=== PATIENT | male | born 1980 | race African-American/Black ===

== ENCOUNTER 2017-11-19 03:02 | Emergency (ER) | payer SELFPAY ==
--- NOTE | 2017-11-19 03:48 | ER Document Report ---
ED General <ARCHANAATUL - Last Filed: 11/19/17 05:22> - General TRAVEL OUTSIDE OF THE [place] IN LAST 30 DAYS: No <MARIA ALEJANDRA GONZALEZ - Last Filed: 11/19/17 06:07> - General Chief Complaint: Headache, L arm pain Stated Complaint: HEADACHE,LEFT ARM PAIN Time Seen by Provider: 11/19/17 03:17 - HPI Notes: Patient is a 37-year-old male with no significant past medical history who presents to the ED complaining of a headache, decreased appetite, left shoulder and arm pain, bilateral knee pain, and bilateral feet pain. Patient states that he feels that he has body aches and does feel subjectively warm. Patient states that his symptoms have been ongoing for 2 days now which began with him feeling "lousy." Patient states that one-point the headache was a 10 out of 10 , but is currently a 5 out of 10. Patient states that his headache starts in the back of his head and works its way around and on top. Patient states that he does have muscle soreness to the neck and left arm. Pt has had issues with moving the left arm due to the pain. He is otherwise eating and drinking without any difficulties. He is urinating normally and having normal bowel movements. He denies any IV drug use. He denies any drug allergies. Denies any fever, head injury, neck pain, changes in vision/speech/mentation/hearing, URI, sore throat, chest pain, palpitations, syncope, cough, shortness of breath , wheeze, dyspnea, abdominal pain, nausea/vomiting/diarrhea, urinary retention, dysuria, hematuria, loss of control of bowel or bladder, numbness/tingling, saddle anesthesia, muscle paralysis/weakness, or rash. (MARIA ALEJANDRA GONZALEZ) - Related Data Allergies/Adverse Reactions: No Known Allergies Allergy (Verified 06/14/16 19:39) Past Medical History - Social History Smoking Status: Current Every Day Smoker Chew tobacco use (# tins/day): No Frequency of alcohol use: None Drug Abuse: None Family History: Reviewed & Not Pertinent Patient has suicidal ideation: No Patient has homicidal ideation: No Renal/ Medical History: Denies: Hx Peritoneal Dialysis - Immunizations Immunizations up to date: Yes Hx Diphtheria, Pertussis, Tetanus Vaccination: Yes <MARIA ALEJANDRA GONZALEZ - Last Filed: 11/19/17 06:07> Review of Systems <ATUL MAGAÑA - Last Filed: 11/19/17 05:22> <MARIA ALEJANDRA GONZALEZ - Last Filed: 11/19/17 06:07> - Review of Systems Notes: REVIEW OF SYSTEMS: CONSTITUTIONAL : see hpi. Denies fever, chills, or sweats. Denies recent illness. EENT: Denies eye, ear, throat, or mouth pain or symptoms. Denies nasal or sinus congestion or discharge. Denies throat, tongue, or mouth swelling or difficulty swallowing. CARDIOVASCULAR: Denies chest pain. Denies palpitations or racing or irregular heart beat. Denies ankle edema. RESPIRATORY: Denies cough, cold, or chest congestion. Denies shortness of breath, difficulty breathing, or wheezing. GASTROINTESTINAL: Denies abdominal pain or distention. Denies nausea, vomiting , or diarrhea. Denies blood in vomitus, stools, or per rectum. Denies black, tarry stools. Denies constipation. GENITOURINARY: Denies difficulty urinating, painful urination, burning, frequency, blood in urine, or discharge. MUSCULOSKELETAL: see hpi SKIN: Denies rash, lesions or sores. NEUROLOGICAL: see hpi. Denies confusion or altered mental status. Denies passing out or loss of consciousness. Denies dizziness or lightheadedness. Denies weakness or paralysis or loss of use of either side. Denies problems with gait or speech. Denies sensory loss, numbness, or tingling. Denies seizures. PSYCHIATRIC: Denies anxiety or stress. Denies depression, suicidal ideation, or homicidal ideation. ALL OTHER SYSTEMS REVIEWED AND NEGATIVE. Dictation was performed using [employer] voice recognition software (MARIA ALEJANDRA GONZALEZ) Physical Exam <ATUL MAGAÑA - Last Filed: 11/19/17 05:22> <MARIA ALEJANDRA GONZALEZ - Last Filed: 11/19/17 06:07> - Vital signs Vitals: Temp Pulse Resp BP Pulse Ox 99.9 F 88 18 153/89 H 99 11/19/17 03:15 11/19/17 03:15 11/19/17 03:15 11/19/17 03:15 11/19/17 03:15 Notes: PHYSICAL EXAMINATION: GENERAL: Well-appearing, well-nourished and in no acute distress. A&Ox4, answers questions appropriately. Obese. HEAD: Atraumatic, normocephalic. Non-tender. No self sign EYES: Pupils equal round and reactive to light, extraocular movements intact, sclera anicteric, conjunctiva are normal. Visual cintron intact. ENT: EAC clear b/l. TM's intact b/l without erythema, fluid, or perforation. Nares patent and without discharge. oropharynx clear without exudates. No tonsilar hypertrophy or erythema. Moist mucous membranes. No sinus tenderness. No hemotympanum/CSF discharge. NECK: Normal range of motion, supple without lymphadenopathy. No rigidity/ meningismus. No midline tenderness. Spurling negative. NEXUS negative. + mild tenderness to the C-paraspinal mm and the trapezius mm b/l. Chest: No flail chest. equal rise/fall. Non-tender LUNGS: Breath sounds clear to auscultation bilaterally and equal. No wheezes rales or rhonchi. HEART: Regular rate and rhythm without murmurs, rubs, gallops. ABDOMEN: Soft, nontender, nondistended abdomen. No guarding, no rebound. No masses appreciated. Normal bowel sounds present. No CVA tenderness bilaterally. Musculoskeletal: Left shoulder: LROM to active due to discomfort, FROM to passive. Strength 5+/5. N/V intact distal. No warmth or swelling to the shoulder/elbow/wrist/hand. No bony tenderness. + tenderness elicited with palp of the soft tissues. No compartment syndrome. Ext otherwise b/l: FROM to passive/active. Strength 5+/5. No deficits noted. + mild tenderness to the knees b/l and feet/toes. N/v intact distal. No warmth , erythema, or swelling noted. Pt able to ambulate w/o difficulty. Back: FROM to passive/active. Strength 5+/5. No vertebral point tenderness, stepoffs, or deformities. No other bony tenderness or ecchymosis. SLR negative b/l. Extremities: No cyanosis, clubbing, or edema b/l. Peripheral pulses 2+. Capillary refill less than 2 seconds. NEUROLOGICAL: NIH 0, GCS 15, MMSE intact. Cranial nerves grossly intact. Normal speech, normal gait. Normal sensory, motor exams. Reflexes 2+ b/l. EDMUND' s negative. Pronator drift negative. Heel/pena, finger/nose wnl. PSYCH: Normal mood, normal affect. SKIN: Warm, Dry, normal turgor, no rashes or lesions noted. (MARIA ALEJANDRA GONZALEZ) Course - Laboratory Result Diagrams: 11/19/17 04:17 11/19/17 04:17 <ATUL MAGAÑA - Last Filed: 11/19/17 05:22> - Laboratory Result Diagrams: 11/19/17 04:17 11/19/17 04:55 <MARIA ALEJANDRA GONZALEZ - Last Filed: 11/19/17 06:07> - Re-evaluation Re-evalutation: 11/19/17 05:22 Patient was initially seen by the PA. I did also evaluate the patient on my own. Patient is a pleasant 29-year-old male presents with complaint of neck pain with some headache as well as diffuse joint pains. Patient says symptoms first started at least 2 days ago. He said he first noticed some pain mainly into his left trapezius muscle and into his left shoulder that went up into his neck and start causing headache. Said these pains were gradual onset not sudden in onset. They are not maximal in onset. Symptoms have continued and now he is also having pain into the right side of his back and then also into his joints such as elbows and knees. He says he feels sore all over. Patient denies any fevers. No vomiting. No diarrhea. His temp in triage was 99.9. His vital signs are otherwise normal. On exam he has pain to palpation over the left trapezius muscle and left shoulder. He has also some pain to palpation over the right trapezius muscle. He does have mild mild pain to palpation of his knees. There is no swelling or redness or warmth to any of his joints. He does work as a furniture assembler. He denies any recent trauma or injuries that he is aware of during moving furniture. We have ordered blood work to check electrolites and renal function status as well as to make sure he does not have a large leukocytosis. Also ordered EKG being that he had does have some pain going to left arm although I suspect this is mostly musculoskeletal due to the easy reproduction with movement and palpation. I suspect most likely is a viral illness causing the pain and body aches. There is also possibility he could just have pain from working as a furniture assembler. I do not suspect bacterial meningitis and that his symptoms have been on going for 2 days and he has no fever and is awake alert and otherwise looks well. We will wait for patient's workup before determining disposition. Dictation of this chart was performed using voice recognition software; therefore, there may be some unintended grammatical errors. (ATUL MAGAÑA) 11/19/17 06:04 Patient is an afebrile, well-hydrated, 37-year-old male who presents to the ED with musculoskeletal pain versus possible viral illness. Vitals are stable. PE is otherwise unremarkable for any focal neurological deficits. CBC, BMP, CPK , EKG, influenza unremarkable for any acute pathology. Low suspicion for any ACS, PE, pneumothorax, pericarditis, dissection, respiratory compromise, severe dehydration, sepsis, meningitis, or other systemic emergent condition at this time. Patient is aware that her condition can change from initial presentation and she needs to monitor symptoms closely and seek medical attention for any acute changes. Toradol given IM along with tylenol, morphine, and fluids. Recommend conservative measures for symptoms. Recheck with your PCM in 3-5 days. Consider consult with Ortho/P.T. Return to the ED with any worsening/ concerning symptoms otherwise as reviewed in discharge. Patient is in agreement. (MARIA ALEJANDRA GONZALEZ) - Vital Signs Vital signs: Temp Pulse Resp BP Pulse Ox 99.9 F 88 17 144/84 H 100 11/19/17 03:15 11/19/17 03:15 11/19/17 05:01 11/19/17 05:01 11/19/17 05:01 - Laboratory Laboratory results interpreted by me: 11/19/17 11/19/17 04:17 04:55 RBC 6.50 H MCV 71 L MCH 22.8 L RDW 15.8 H Sodium 135.8 L Glucose 130 H Calcium 8.3 L Creatine Kinase 54 L Discharge <ATUL MAGAÑA - Last Filed: 11/19/17 05:22> <MARIA ALEJANDRA GONZALEZ - Last Filed: 11/19/17 06:07> - Discharge Clinical Impression: Musculoskeletal pain of extremity, Viral illness Condition: Stable Disposition: HOME, SELF-CARE Instructions: Headache ([facility]) Additional Instructions: Rest, Ice, Compression, Elevation Use crutches/splint/sling as directed Tylenol/ibuprofen as needed Light stretches daily Strength exercises as able Moist heat and massage may help F/u with your PCP in 3-5 days for a recheck Consider consult(s) with Orthopedics/physical therapy for ongoing/worsening symptoms Return to the ED with any worsening symptoms and/or development of fever, headache, chest pain, palpitations, syncope, shortness of breath, trouble breathing, abdominal pain, n/v/d, muscle weakness/paralysis, numbness/tingling, swelling, redness, or other worsening symptoms that are concerning to you. Prescriptions: Naproxen 500 mg PO BID PRN #30 tablet PRN Reason: Forms: Elevated Blood Pressure, Smoking Cessation Education Referrals: [facility] ([facility] [Provider Group] - Follow up as needed
[2017-11-19] MEDS ORDERED: ACETAMINOPHEN 325 MG TABLET PO ONE (03:57)
[2017-11-19] MEDS ORDERED: MORPHINE SULFATE 10 MG/ML INJ IV ONE (04:00)
[2017-11-19] MEDS: NORMAL SALINE 1000 ML 1,000 ML IV PRN ×2 (04:19→04:46)
[2017-11-19 04:34] LABS: ABSOLUTE LYMPHOCYTES (AUTO) 1.3 10^3/uL (0.5-4.7); ABSOLUTE MONOCYTES (AUTO) 0.3 10^3/uL (0.1-1.4); ABSOLUTE NEUT (AUTO) 2.5 10^3/uL (1.7-8.2); BASOPHILS % (AUTO) 0.8 % (0-2); HEMOGLOBIN 14.8 g/dL (13.5-17.0); LYMPHOCYTES % (AUTO) 31.7 % (13-45); MEAN CORPUSCULAR HEMOGLOBIN 22.8 pg (27.0-33.4); MEAN CORPUSCULAR HGB CONC 32.2 g/dL (32.0-36.0); MEAN CORPUSCULAR VOLUME 71 fl (80-97); MONOCYTES % (AUTO) 6.9 % (3-13); PLATELET COUNT 206 10^3/uL (150-450); RED CELL DISTRIBUTION WIDTH 15.8 % (11.5-14.0); SEGMENTED NEUTROPHILS % (AUTO) 60.6 % (42-78); TOTAL CELLS COUNTED % (AUTO) 100 %; WHITE BLOOD COUNT 4.2 10^3/uL (4.0-10.5)
[2017-11-19 04:46] LABS: A TYPE INFLUENZA AG NEGATIVE (NEGATIVE); B INFLUENZA AG NEGATIVE (NEGATIVE)
[2017-11-19 05:28] LABS: ANION GAP 8 (5-19); BLOOD UREA NITROGEN 9 mg/dL (7-20); CALCIUM 8.3 mg/dL (8.4-10.2); CARBON DIOXIDE 23 mmol/L (22-30); CHLORIDE 105 mmol/L (98-107); CREATINE KINASE 54 U/L (55-170); GLUCOSE 130 mg/dL (75-110); MAGNESIUM 1.8 mg/dL (1.6-2.3); SODIUM 135.8 mmol/L (137-145)
[2017-11-19] MEDS ORDERED: KETOROLAC TROMETHAMINE INJ/PF 30 MG/1 ML SDV IV ONE (05:43)
[2017-11-19 06:09] VITALS: BP 139/92
--- NOTE | 2017-11-19 09:32 | EKG REPORT ---
SEVERITY:- BORDERLINE ECG - SINUS RHYTHM LVH BY VOLTAGE BORDERLINE T ABNORMALITIES, INFERIOR LEADS : Confirmed by: Amilcar Santizo 19-Nov-2017 09:31:34
== END 2017-11-19 06:18 | disposition home or self-care (01) ==
LOC: ER 03:02
DX: M79.602 Pain in left arm (principal); B34.9 Viral infection, unspecified; R51 Headache
CPT/HCPCS: 93005; 99284; 96361; 96374; 96375; 36415; 82550; 83735; 85025; 80048; 87804; 93010; J1885; J2270; J7030

== ENCOUNTER 2020-06-28 11:46 | Emergency (ER) | payer OTHER ==
[2020-06-28 11:51] VITALS: BP 154/78
[2020-06-28] MEDS ORDERED: KETOROLAC TROMETHAMINE 60 MG/2 ML SDV IM ONE (12:07)
--- NOTE | 2020-06-28 12:10 | ER Document Report ---
ED Extremity Problem, Lower - General Chief Complaint: Knee Pain Stated Complaint: KNEE PAIN Time Seen by Provider: 06/28/20 12:02 Primary Care Provider: [facility] [Provider Group] - Follow up in 3-5 days Mode of Arrival: Wheelchair Information source: Patient Notes: 39-year-old male presented to ED for complaint of pain to his right knee. He s tates he injured it to 3 years ago and he thinks he had a x-ray at that time he is not sure. He states intermittently it does get very painful and swollen. He does have to stand a lot at his job. He states he went to work today and it was just too painful to stand up. He is alert oriented respirations regular nonlabored speaking in full sentences. He is a former smoker drinks weekly and uses little marijuana. He does work [employer] lives with his family. He does have pain to both sides and the back of his knee. TRAVEL OUTSIDE OF THE [place] IN LAST 30 DAYS: No - HPI Patient complains to provider of: Pain, Swelling Location: Knee - Right Occurred: Other - states he states he hurt it several years ago but it intermittently hurts Onset/Duration: Intermittent Quality of pain: Pressure, Sharp, Throbbing Severity: Moderate Pain Level: 4 Recent injury: No Associated symptoms: Painful ambulation Exacerbated by: Hanging down, Movement Relieved by: Elevation, Ice, Rest - Related Data Allergies/Adverse Reactions: No Known Allergies Allergy (Verified 06/28/20 12:09) Past Medical History - General Information source: Patient - Social History Smoking Status: Former Smoker Frequency of alcohol use: Social Drug Abuse: Marijuana Lives with: Family - Call Family History: Reviewed & Not Pertinent Patient has suicidal ideation: No Patient has homicidal ideation: No - Past Medical History Cardiac Medical History: Reports: None Pulmonary Medical History: Reports: None EENT Medical History: Reports: None Neurological Medical History: Reports: None Endocrine Medical History: Reports: None Renal/ Medical History: Reports: None Malignancy Medical History: Reports None GI Medical History: Reports: None Musculoskeletal Medical History: Reports Hx Arthritis, Reports Hx Musculoskeletal Deformity, Reports Hx Musculoskeletal Trauma Skin Medical History: Reports None Psychiatric Medical History: Reports: None Traumatic Medical History: Reports: None Infectious Medical History: Reports: None Surgical Hx: Negative Past Surgical History: Reports: None - Immunizations Immunizations up to date: Yes Hx Diphtheria, Pertussis, Tetanus Vaccination: Yes Review of Systems - Review of Systems Constitutional: No symptoms reported EENT: No symptoms reported Cardiovascular: No symptoms reported Respiratory: No symptoms reported Gastrointestinal: No symptoms reported Genitourinary: No symptoms reported Male Genitourinary: No symptoms reported Musculoskeletal: Joint pain - Right knee, Joint swelling - Right knee Skin: No symptoms reported Hematologic/Lymphatic: No symptoms reported Neurological/Psychological: No symptoms reported -: Yes All other systems reviewed and negative Physical Exam - Vital signs Vitals: Temp Pulse Resp BP Pulse Ox 98.4 F 63 16 154/78 H 100 06/28/20 11:50 06/28/20 11:50 06/28/20 11:50 06/28/20 11:50 06/28/20 11:50 Interpretation: Normal - General General appearance: Appears well, Alert - HEENT Head: Normocephalic, Atraumatic Eyes: Normal Pupils: PERRL - Respiratory Respiratory status: No respiratory distress Chest status: Nontender Breath sounds: Normal Chest palpation: Normal - Cardiovascular Rhythm: Regular Heart sounds: Normal auscultation Murmur: No - Abdominal Inspection: Normal Distension: No distension Bowel sounds: Normal Tenderness: Nontender Organomegaly: No organomegaly - Back Back: Normal, Nontender - Extremities General upper extremity: Normal inspection, Nontender, Normal color, Normal ROM, Normal temperature General lower extremity: Normal color, Normal temperature, Normal weight bearing. No: Tima's sign Knee: Tender, Joint effusion, Pain with ROM, Patellar tendon intact, Tender joint line. No: Abrasion, Deformity, Dislocation, Drawer's test instability, Ecchymosis, Instability, Laceration, Laxity with valgus stress, Laxity with varus stress - Neurological Neuro grossly intact: Yes Cognition: Normal Orientation: AAOx4 Rochelle Coma Scale Eye Opening: Spontaneous Rochelle Coma Scale Verbal: Oriented Rochelle Coma Scale Motor: Obeys Commands Rochelle Coma Scale Total: 15 Speech: Normal Motor strength normal: LUE, RUE, LLE, RLE Sensory: Normal - Psychological Associated symptoms: Normal affect, Normal mood - Skin Skin Temperature: Warm Skin Moisture: Dry Skin Color: Normal Course - Re-evaluation Re-evalutation: 06/28/20 22:08 X-ray was negative for any acute injuries to the right knee. He was treated with a Shady wrap in the emergency room discharged home with instructions to follow-up with his primary care and orthopedics. Patient verbalized understanding and agreement treatment plan and patient was discharged home. Patient was able to walk out of the emergency room. - Vital Signs Vital signs: Temp Pulse Resp BP Pulse Ox 98.4 F 63 16 154/78 H 100 06/28/20 11:50 06/28/20 11:50 06/28/20 11:50 06/28/20 11:50 06/28/20 11:50 - Diagnostic Test Radiology reviewed: Image reviewed, Reports reviewed Procedures - Immobilization Right Knee Time completed: 13:28 Immobilizer type: Shady wrap Performed by: KIRK Post-Proc Neuro Vasc Exam: Normal Alignment checked and good: Yes Discharge - Discharge Clinical Impression: Chronic pain of right knee Condition: Stable Disposition: HOME, SELF-CARE Additional Instructions: Have chronic pain to your right knee. You states it hurts at times and other times it does not. At this time you came in for the pain in the knee and weakness to the knee. We have done an x-ray which did not show any radiological injuries. You will need to follow-up with orthopedics for them to do further studies to find out why you knee is hurting you at times. We have applied an Shady wrap at this time. This is to help you with your discomfort. You can take it off when you are not having any pain. Knee Exercise Program It's important to strengthen the muscles around the knee. This protects the injured area and stabilizes a knee that's been loosened by ligament injury. EARLY - Even when motion of the knee is painful (even when wearing a splint), you can begin isometric "quads" exercises. While sitting, hold the knee out, and contract the muscles to stiffen it. It shouldn't be straightened all the way -- stiffen it in a slightly-bent position. Lift the leg and draw a "T" with your foot, up to 100 times. When it becomes easy, add a weight on your foot. LATE - When the doctor advises you, you can begin moving the knee against resistance. The front muscles (quadriceps) are most important. While sitting at a [employer], straighten the knee forcefully while pushing a weight up with your ankle. Start with five to 10 pounds. Do 10 to 20 repetitions, increasing the weight as tolerated. Don't use more weight than is comfortable! Over a few weeks, work up to 35 to 50 pounds. Athletes should try to reach 70 to 90 pounds. SHADY WRAP: A compression dressing (shady wrap) has been placed. This helps hold the area still. It limits swelling and internal bleeding. The wrap should be comfortably snug -- not tight. You should feel a sense of pressure, but not severe pain under the wrap. Unless the physician tells you otherwise, you can adjust the wrap for comfort. If the wrap causes symptoms suggesting it's too tight -- uncomfortable pressure, swelling or discoloration beyond the wrap, numbness, or severe pain -- you must loosen the wrap. If these symptoms don't resolve promptly, return for re-evaluation. ICE & ELEVATION: Apply ice packs frequently against the painful area. Many different schedules are recommended, such as "20 minutes on, 20 minutes off" or "one hour ice, two hours rest." If you need to work, you may need to go longer between ice treatments. You should plan to have the area ice packed AT LEAST one-fourth of the time. The ice should be applied over the wrap, tape, or splint, or over a layer of cloth -- not directly against the skin. Some ice bags have a built-in cloth and can be put directly on the skin. Your injured part should be elevated as much as possible over the next 48 hours. Try to keep the injury above the level of the heart. Avoid use of the injured area. Elevation and rest will decrease the swelling. USE OF UOEM-KYX-OUGCTOM IBUPROFEN: Ibuprofen (Advil, Nuprin, Medipren, Motrin IB) is a medication for fever and pain control. In addition, it has anti- inflammatory effects which may be beneficial, especially in the treatment of injuries. It's best to take ibuprofen with food. Persons with ulcer disease or allergy to aspirin should notify their physician of this before taking ibuprofen. Ibuprofen can be given every four to six hours, for a total of four doses daily. Age Pain or fever dose Antiinflammatory dose 6-8 yr 200 mg (1 tab) 200 mg (1 tab) 9-11 yr 200 mg (1 tab) 200-400 mg (1-2 tab) 11-14 yr 200-400 mg (1-2 tab) 400 mg (2 tab) 15-adult 400 mg (2 tab) 600 mg (3 tab) Toradol Injection You have been given an injection of ketorolac tromethamine (Toradol). This is an excellent, safe drug for pain control. It also has potent antiinflammatory action. You should have significant pain relief within about one hour. Toradol is not addicting and is non-sedating. It does not interfere with driving or work. Call or return if you develop itching, hives, shortness of breath, or rash. FOLLOW-UP CARE: If you have been referred to a physician for follow-up care, call the physicians office for an appointment as you were instructed or within the next two days. If you experience worsening or a significant change in your symptoms, notify the physician immediately or return to the Emergency Department at any time for re-evaluation. Forms: Elevated Blood Pressure, Return to Work Referrals: [facility] ([facility] [Provider Group] - Follow up in 3-5 days
--- NOTE | 2020-06-28 13:11 | RADIOLOGY REPORT (SQ) ---
EXAM DESCRIPTION: KNEE RIGHT 4 VIEWS IMAGES COMPLETED DATE/TIME: 06/28/2020 12:58 pm REASON FOR STUDY: Pain swelling right knee old injury COMPARISON: 06/14/2016. NUMBER OF VIEWS: Four views. TECHNIQUE: AP, lateral, and both oblique radiographic images acquired of the right knee. LIMITATIONS: None. FINDINGS: MINERALIZATION: Normal. BONES: No acute fracture or dislocation. No worrisome bone lesions. No significant osteophytes. JOINT: No effusion. No chondrocalcinosis. OTHER: No other significant finding. IMPRESSION: NEGATIVE STUDY OF THE RIGHT KNEE. NO EXPLANATION FOR PAIN. TECHNICAL DOCUMENTATION: JOB ID: [id number] 2010 [employer]- All Rights Reserved Reading location - IP/workstation name: [email or web address]
== END 2020-06-28 13:28 | disposition home or self-care (01) ==
LOC: ER 11:46
DX: M25.561 Pain in right knee (principal); G89.29 Other chronic pain; M25.461 Effusion, right knee; F12.10 Cannabis abuse, uncomplicated; Z87.828 Personal history of other (healed) physical injury and trauma; Z87.891 Personal history of nicotine dependence
CPT/HCPCS: 99284; 96372; 73564; J1885